=== PATIENT | female | born 1995 | race African-American/Black ===

== ENCOUNTER 2019-12-23 18:33 | Emergency (ER) | payer OTHER, SELFPAY ==
--- NOTE | 2019-12-23 18:37 | ED.GENADULT ---
HPI - General Adult General Chief complaint: Skin/Abscess/Foreign Body Stated complaint: sore on mouth Time Seen by Provider: 12/23/19 18:52 Source: patient and RN notes reviewed Mode of arrival: ambulatory Limitations: no limitations History of Present Illness HPI narrative: 24-year-old female presents with concern for sore on her lip. Reports she noticed the sore this morning. Reports that is on the corner of her mouth with a pain level of a 2 out of 10. She denies any similar instances in the past. Denies rhinorrhea, nasal congestion, cough, fever, shortness of breath. complaint: Oral herpes Related Data Home Medications Medication Instructions Recorded Confirmed No Home Medications 12/23/19 12/23/19 Allergies Allergy/AdvReac Type Severity Reaction Status Date / Time No Known Allergies Allergy Verified 12/23/19 18:41 Review of Systems Review of Systems: Narrative: CONSTITUTIONAL: Denies malaise, chills, sweats, or fever. EYES: Denies visual changes, redness, or discharge. ENT: Denies rhinorrhea, congestion, sinus pain, otalgia or sore throat. Reports oral sore CARDIOVASCULAR: Denies chest pain, palpitations RESPIRATORY: Denies cough or dyspnea. SKIN: Denies rash or itching. Reports oral sore MUSCULOSKELETAL: Denies myalgia. NEUROLOGIC: Denies numbness, weakness, or headache. All systems reviewed & are unremarkable except as noted in HPI and below PMFSH Comments At time of signature, agree with nursing past medical, surgical, social and family history. There is no relevant family history pertinent to the presenting complaint Exam Narrative: Exam Narrative: GENERAL: Well-appearing, well-nourished, and in no acute distress. HEAD: Normocephalic, atraumatic. EYES: PERRLA, conjunctivae clear, and EOMI ENT: Nares clear, turbinates pink, no rhinorrhea or epistaxis. Mucous membranes moist. TM pearly wiley with sharp light reflex bilaterally; no tragal tenderness. Oropharynx without erythema or lesions. Tonsils not enlarged and without exudate. NECK: Supple. CHEST: No respiratory distress. Clear to auscultation. No bony deformities, no asymmetry. Speaks in full sentences. HEART: Regular rate and rhythm. No murmur heard. SKIN: Warm, dry, no rash. Small vesicle noted to the right corner of the patient's lip NEURO: Alert and oriented x3. PSYCH: Normal mood and affect Course Course Emergency Course: Patient is aware of diagnosis, understands and agrees to treatment plan. Anticipatory guidance given. Patient agrees to follow-up as directed and is aware of reasons to seek care at the emergency department. Portions of this record may have been created with voice recognition software Vital Signs Vital signs: Vital Signs Temperature 99.0 F 12/23/19 18:53 Pulse Rate 104 H 12/23/19 18:53 Respiratory Rate 16 12/23/19 18:53 Blood Pressure 143/91 H 12/23/19 18:53 Pulse Oximetry 100 12/23/19 18:53 Temperature 99.0 F 12/23/19 18:53 Pulse Rate 104 H 12/23/19 18:53 Respiratory Rate 16 12/23/19 18:53 Blood Pressure 143/91 H 12/23/19 18:53 Pulse Oximetry 100 12/23/19 18:53 Reviewed. Patient has been instructed to follow up with her primary care provider within the next week regarding her elevated blood pressure today. Medical Decision Making MDM Narrative Medical decision making narrative: Exam findings show no acute concerns or changes; patient is non-toxic appearing and is in no distress. Patient is appropriate for outpatient treatment and follow-up. Vital Signs Vital Signs: Vital Signs Temperature 99.0 F 12/23/19 18:53 Pulse Rate 104 H 12/23/19 18:53 Respiratory Rate 16 12/23/19 18:53 Blood Pressure 143/91 H 12/23/19 18:53 Pulse Oximetry 100 12/23/19 18:53 Temperature 99.0 F 12/23/19 18:53 Pulse Rate 104 H 12/23/19 18:53 Respiratory Rate 16 12/23/19 18:53 Blood Pressure 143/91 H 12/23/19 18:53 Pulse Oximetry 100 12/23/19 18:53 Critical Care
[2019-12-23 18:53] VITALS: BP 143/91; PULSE 104; RESP 16; TEMP 37.2; O2SAT 100
== END 2019-12-23 19:05 | disposition home or self-care (01) ==
PROVIDERS: Emergency Provider Nurse Practitioner
DX: B00.1 Herpesviral vesicular dermatitis (principal)
CPT/HCPCS: 99201; G0463

== ENCOUNTER 2020-08-13 09:44 | Outpatient (CLI) | payer BC, SELFPAY ==
--- NOTE | ~2020-08-13 | MR_ITS ---
EXAMINATION: MR pituitary wo/w con DATE: 08/13/2020 11:57 INDICATION: Hyperprolactinemia. TECHNIQUE: Magnetic resonance imaging (MRI) of the brain and brainstem was performed without and with 20 mL MultiHance intravenous contrast. Whole-brain sequences included sagittal T1-weighted FSE, axia l diffusion-weighted FS EPI, axial T2*-weighted GRE, axial T2-weighted FLAIR Propeller, and axial T2- weighted Propeller. Small [id number] sequences included sagittal and coronal T1-weighted FSE cente red at the pituitary. Postcontrast sequences included small [id number] coronal T1-weighted FSE in a time course and sagittal T1-weighted FSE and whole-brain axial T1-weighted FSE. Apparent diffusion coefficient (ADC) maps were created. COMPARISON: None. FINDINGS: The pituitary is normal in size with height of 6 mm and concave superior margin. There is n o intracranial hemorrhage, acute infarction, or abnormal intracranial mass lesion. The ventricles are normal in size. The mastoid air cells are normal. There is mild mucosal thickening in the ethmoid si nuses. The orbits are normal. IMPRESSION: 1. Normal pituitary. Normal brain. Reviewed, dictated and finalized at location A. 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
[2020-08-13 10:40] LABS: Estimated Glomerular Filt Rate > 60
== END 2020-08-13 09:45 | disposition home or self-care (01) ==
PROVIDERS: PCP Nurse Practitioner Family; Visit Provider Nurse Practitioner Family
DX: E22.1 Hyperprolactinemia (principal)
CPT/HCPCS: 70553; A9577

== ENCOUNTER 2022-07-13 18:31 | Emergency (ER) | payer BC, SELFPAY ==
[2022-07-13 18:39] VITALS: BP 172/112; PULSE 110; RESP 16; TEMP 36.4; O2SAT 99
--- NOTE | 2022-07-13 18:45 | ECG_ITS ---
Measurements Intervals Goodman Rate: 107 P: 36 OH: 155 QRS: 19 QRSD: 85 T: 29 QT: 319 QTc: 426 Interpretive Statements SINUS TACHYCARDIA ABNORMAL ECG NO PREVIOUS ECG AVAILABLE FOR COMPARISON Electronically Signed On 07-13-2022 20:46:21 [employer] by Jordan Luo D.O.
[2022-07-13 19:15] LABS: Basophils Percent Auto 0.4 % (0.2-1.2); Eosinophils Absolute Auto 0.2 K/mm3 (0-0.3); Eosinophils Percent Auto 3.1 % (0-4.4); Hematocrit 40.9 % (37.0-47.0); Hemoglobin 13.3 g/dL (12.0-15.0); Immature Granulocyte Absolute 0.02 K/mm3 (0.00-0.031); Immature Granulocyte Percent A 0.3 % (0-0.5); Lymphocytes Absolute Auto 2.23 K/mm3 (0.9-3.2); Lymphocytes Percent Auto 33.3 % (18.3-44.2); Mean Corpuscular HGB Conc 32.5 g/dl (32-36); Mean Platelet Volume 9.3 fl (7.4-10.4); Monocytes Absolute Auto 0.6 K/mm3 (0.1-0.6); Monocytes Percent Auto 8.5 % (2.6-8.5); Neutrophils Absolute Auto 3.6 K/mm3 (1.3-6.7); Neutrophils Percent Auto 54.4 % (45.5-73.1); Platelet Count Result 314 k/mm3 (150-375); Red Blood Count 4.93 M/mm3 (4.2-5.4); Red Cell Distribution Width 13.9 % (11.5-14.5); White Blood Count 6.7 K/mm3 (4.5-10.0)
[2022-07-13 19:33] LABS: Appearance Urine Clear (Clear); Bilirubin Urine Negative (Negative); Blood Urine Negative (Negative); Color Urine Yellow (Yellow); Glucose Urine UA Negative (Negative); Ketones Urine Negative (Negative); Leukocyte Esterase Ur Negative LEU/UL (Negative); Nitrate Urine Negative (Negative); Protein Urine Negative (Negative); Specific Grav Ur 1.015 (1.001-1.035); Urobilinogen Urine 0.2 mg/dL (<2.0); pH Urine 5.5 (5.0-9.0)
[2022-07-13 19:34] LABS: Add Urine Microscopic? NO
[2022-07-13 20:06] LABS: Alanine Aminotransferase 32 U/L (6-35); Albumin Level 4.7 g/dL (3.5-5.1); Alkaline Phosphatase 74 U/L (38-126); Anion Gap 11 mmol/L (8-16); Aspartate Amino Transferase 31 U/L (14-36); Bilirubin,Total 0.8 mg/dL (0.2-1.3); Blood Urea Nitrogen 14 mg/dL (7-17); Calcium 8.7 mg/dL (8.4-10.2); Carbon Dioxide 23 mmol/L (22-30); Chloride 104 mmol/L (98-107); Estimated CRCL calculation 126 ml/min; Estimated Glomerular Filt Rate > 60; Glucose 90 mg/dL (65-110); Potassium 4.5 mmol/L (3.4-5.0); Sodium 138 mmol/L (137-145)
--- NOTE | 2022-07-13 21:12 | ED.RECABL ---
HPI - Recheck/Abnormal Lab/Rx General Chief Complaint: Recheck/Abnormal Lab/Rx Stated Complaint: High blood pressure Time Seen by Provider: 07/13/22 21:11 History of Present Illness HPI narrative: Patient is a healthy 27 year old female here for evaluation of a blood pressure of 170/100 at home today. Patient took her blood pressure because she was feeling anxious/dizzy. She has no history of HTN; states she has a cuff because she likes to check it frequently. She denies any chest pain, SOB, confusion, weakness, fevers, chills. Currently, she is asymptomatic. Notes frequent stressors at work and today she was working on a stressful activity. Related Data Home Medications Medication Instructions Recorded Confirmed No Home Medications 12/23/19 12/23/19 Allergies Allergy/AdvReac Type Severity Reaction Status Date / Time No Known Allergies Allergy Verified 12/23/19 18:41 Review of Systems Review of Systems: CONSTITUTIONAL: Denies fever, chills, or sweats. EYES: Denies visual changes, redness, or discharge. ENT: Denies rhinorrhea, congestion, sore throat, or otalgia. CARDIOVASCULAR: Denies chest pain, palpitations, or edema. RESPIRATORY: Denies cough or dyspnea. GASTROINTESTINAL: Denies abdominal pain, nausea, vomiting, or diarrhea. GENITOURINARY: Denies dysuria or hematuria. SKIN: Denies rash or itching. MUSCULOSKELETAL: Denies back pain, joint pain, or myalgia. NEUROLOGIC: Denies headache, numbness, or weakness. PSYCHIATRIC: Denies anxiety or depression. [facility] Past Medical History Medical History Fatigue Screening cholesterol level Vitamin D deficiency disease Exam Narrative: APPEARANCE: Well appearing, no pain in distress, well-nourished. Head: Normocephalic and atraumatic. EYES: PERRLA/EOMI, conjunctivae clear NOSE: No nasal drainage EARS: External ear normal in appearance THROAT: Oropharynx is clear. Mucous membranes are moist. NECK: Supple. No adenopathy, no masses. RESPIRATORY: Airway patent, respirations nonlabored. Clear to auscultation bilaterally, no rales, rhonchi, wheezing. CARDIOVASCULAR: Regular rate and rhythm without murmurs, rubs, or gallops. ABDOMINAL: Normoactive bowel sounds. Soft, nontender, nondistended. No rebound tenderness or guarding. MUSCULOSKELETAL: Extremities are warm and well-perfused. Moves all extremities well. No edema. NEURO: Normal speech. No focal neurologic deficits. SKIN: Skin is warm and dry. No rashes. PSYCHIATRIC: Normal affect/mood.. Course Vital Signs Vital signs: Vital Signs Temperature 97.6 F 07/13/22 18:39 Pulse Rate 110 H 07/13/22 18:39 Respiratory Rate 16 07/13/22 18:39 Blood Pressure 172/112 H 07/13/22 18:39 Pulse Oximetry 99 07/13/22 18:39 Oxygen Delivery Room Air 07/13/22 18:39 Temperature 97.6 F 07/13/22 18:39 Pulse Rate 94 07/13/22 21:48 Respiratory Rate 18 07/13/22 21:48 Blood Pressure 156/108 H 07/13/22 21:48 Pulse Oximetry 98 07/13/22 21:48 Oxygen Delivery Room Air 07/13/22 18:39 MDM - Recheck/Abnormal Lab/Rx MDM Narrative Medical decision making narrative: 27 yo F here for evaluation of asymptomatic HTN earlier today with reads in 170s systolic. BP is 172/112 upon arrival, which came down without intervention in the ED to 156/108. EKG is non-ischemic; and patient is not complaining of chest pain or SOB. Basic labs unremarkable; her kidney function is normal. UA without protein/blood. test negative. Patient was reassured; no signs of end-organ damage or hypertensive emergency. She will be discharged home to f/u with her PCP. Forgo antihypertensive therapy at this time as patient states her BP typically is normal at home. She was given return precautions and voiced understanding. Lab Data Result diagrams: 07/13/22 19:06 07/13/22 19:46 Labs: Lab Results 07/13/22 07/13/22 07/13/22 Range/Units 19:05 19
[2022-07-13 21:17] VITALS: BP 156/96; PULSE 103; RESP 18; O2SAT 100
[2022-07-13 21:18] VITALS: PULSE 103; RESP 21; O2SAT 100
[2022-07-13 21:48] VITALS: BP 156/108; PULSE 94; RESP 18; O2SAT 98
[2022-07-13 22:02] LABS: Pregnancy On Board Control Positive; Urine Pregnancy Test Negative
== END 2022-07-13 22:06 | disposition home or self-care (01) ==
PROVIDERS: Emergency Medicine; Physician Assistant; Emergency Provider Emergency Medicine; PCP Nurse Practitioner Family
DX: R03.0 Elevated blood-pressure reading, without diagnosis of hypertension (principal); E55.9 Vitamin D deficiency, unspecified; R00.0 Tachycardia, unspecified
CPT/HCPCS: 36415; 80053; 81003; 81025; 85025; 93005; 99283